=== PATIENT | male | born 1970 ===

== ENCOUNTER 2016-09-20 17:39 | Emergency (ER) | payer SELFPAY ==
--- NOTE | 2016-09-20 19:13 | DIAGNOSTIC IMAGING REPORT ---
PROCEDURE: XR HAND 3 OR 4 VIEWS - RIGHT INDICATION: Fell fall with fifth metacarpal hand pain TECHNIQUE: Four views of the right hand. COMPARISON: 01/07/2010 FINDINGS: Normal mineralization. No acute fractures. Chronic irregularity along the medial aspect of the fifth metacarpal base and involving the first metacarpal head. Normal osseous alignment. No suspicious soft-tissue calcification or radiodense foreign bodies. IMPRESSION: 1. No acute fractures. 2. Chronic irregularities along the first metacarpal head and fifth metacarpal base suggestive of prior fractures, correlate clinically.
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
--- NOTE | 2016-09-20 19:16 | ED NURSING NOTES ---
Clinical Report - Nurses [facility] [place] [address] 09/20/2016 17:39 Patient: ADRIÁN HANKINS TRIAGE Triage time 17:47. Acuity: LEVEL 4. Chief Complaint: INJURY TO RIGHT HAND. 17:47 09/20/16. 17:47 09/20/16. Alert. No acute distress. SEPSIS SCREEN: Sepsis Screen. Negative (no infection suspected/documented). ANGE COMA SCORE: Ange Coma Scale: 15- eyes open spontaneously (4); best verbal response- oriented x 4 (5); best motor response- obeys commands (6). --17:52 Nash Lopez R.N. 17:47 09/20/16. BP: 134/84. HR: 74. RR: 16. O2 saturation: 98% on room air. Temp: 97.9 F (oral). Pain level now: 11/15. --17:52 Nash Lopez R.N. Weight: 83.9 kg stated. Height/Length: 69 inches Per Patient. BMI: 27.3. --17:48 Nash Lopez R.N. Medications None. --17:49 Nash Lopez R.N. Medication/allergy information source: the patient. --17:52 Nash Lopez R.N. Allergies Penicillins. --17:49 Nash Lopez R.N. History Arrived by private vehicle. Historian: patient. Unaccompanied. Primary physician (NONE). 17:47 09/20/16. This occurred last night. Mechanism of injury: fell. 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 PAST MEDICAL HX: Tetanus status: up-to-date. Immunizations: up-to-date. SOCIAL HX: Never smoker. No alcohol use or drug use. No infectious disease exposure. ABUSE ASSESSMENT: No report of abuse. FALL RISK ASSESSMENT: Fall risk assessment completed. No fall risk identified. NUTRITIONAL RISK ASSESSMENT: The nutritional risk assessment revealed no deficiencies. FUNCTIONAL ASSESSMENT: Functional assessment: no impairments noted. LEARNING NEEDS ASSESSMENT: The learning needs assessment revealed no barriers. SKIN INTEGRITY ASSESSMENT: Skin integrity risk assessment completed. No skin integrity risk identified. --17:52 Nash Lopez R.N. PROBLEMS: Rib Fracture. Fall. Myofascial Strain. Lumbar Strain. Pneumonia. Chest Wall Pain. Hyperlipidemia. Anxiety Reaction. Hypercholesterolemia. Constipation. Rectal Bleed. Hypertension. Immunizations. --17:49 Nash Lopez R.N. ADDITIONAL SURGERIES: no known surgeries. Assessment 17:47 09/20/16. --17:52 Nash Lopez R.N. Interventions 17:47 09/20/16. 17:47 09/20/16. ID and allergy band on patient. To treatment room. --17:52 Nahs Lopez R.N. PHYSICAL ASSESSMENT 17:49 09/20/16. Ambulatory to room. GENERAL / NEURO / PSYCH: Oriented X 4. Alert. Appears in no acute distress. EXTREMITIES: Capillary refill is less than 2 seconds in the extremities. Extremity pulses are within normal limits. Extremities exhibit normal ROM. Neuro-vascular status intact to the extremity. Right hand: tenderness and swelling. SKIN: Skin is warm and dry. --17:49 Nash Lopez R.N. NURSING PROGRESS NOTES 17:50 09/20/16. The plan of care for this patient has been created. Cold pack applied. Extremity elevated. Neuro-vascular extremity check. Reassurance given. Call light placed in reach. Side rails up x 2. Bed placed in lowest position. Brakes of bed on. Patient ready for evaluation- chart flagged and notification provided. --17:50 Nash Lopez R.N. 18:06 09/20/16. ( x-ray completed). --18:06 Nash Lopez R.N. 18:25 09/20/16. Patient waiting for diagnostic study result. --18:25 Nash Lopez R.N. 19:15 09/20/2016 Hydrocodone-APAP (Hydrocodone-Acetaminophen) PO 5/325 mg Tablets 1 tab given. Allergies verified, confirmed 5 rights and sedative warning given to the patient. --19:18 Christianne Kaplan R.N. 2 inch fran bandage applied to right wrist by nurse; distal pulses intact, sensation intact and motor function within normal limits. --19:22 Christianne Kaplan R.N. DISPOSITION / DISCHARGE Condition at departure: improved and stable. No learning barriers present. Discharge instructions provided and reviewed with the patient. Reviewed medication(s) side effects, precautions, dosing and course information. Prescription(s) given to the patient. Work note given. Patient verbalized understanding. Written instructions provided in Divehi. The patient was discharged home and unaccompanied at time of discharge. He left the Emergency Department ambulatory and via private vehicle. Boiler Coverer Helper driving. --19:28 Christianne Kaplan R.N. 19:23 09/20/16. BP: 119/81 taken on the left arm, while lying. HR: 71 (regular and normal rate). RR: 18 (regular and unlabored). O2 saturation: 98% on room air. Temp: deferred. Pain level now: 06/18. --19:28 Christianne Kaplan R.N. Locked/Released at 09/20/2016 19:28 by Christianne Kaplan R.N.
--- NOTE | 2016-09-20 19:16 | ED ORDER SUMMARY ---
..... Patient: ADRIÁN HANKINS OrderSheet [facility] VisitID: [id number] [place] [address] 46y, M Registration Date/Time: 09/20/2016 ORDER SHEET Weight: 83.9 kg (stated) Allergies: Penicillins GENERAL ORDERS: Hand 3 or 4V Right Urgent (17:50 09/20/2016 Nav R.N. per protocol) (Ack 18:00 Zenia) (18:06 Nav R.N.) Mat Wrap (19:16 09/20/2016 HBivens A.R.N.P.) (19:21 CBradburn R.N.) MEDICATION ORDERS: Hydrocodone-APAP PO 5/325 mg (NOW, HIGH ALERT MEDICATION) (19:14 09/20/2016 HBivens A.R.N.P.) (Ack 19:15 John R.N.) (19:18 CBradburn R.N.) IV FLUIDS: ORDER SHEET NOTES: [Electronically signed by Christianne Kaplan R.N. (19:28 09/20/2016)] [Electronically signed by Jud Oconnor A.R.N.P. (20:47 09/20/2016)] [Electronically locked/signed by Christianne Kaplan R.N. (19:28 09/20/2016)]
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
--- NOTE | 2016-09-20 19:16 | ED ORDER SUMMARY ---
..... Patient: ADRIÁN HANKINS OrderSheet [facility] VisitID: [id number] [place] [address] 46y, M Registration Date/Time: 09/20/2016 ORDER SHEET Weight: 83.9 kg (stated) Allergies: Penicillins GENERAL ORDERS: Hand 3 or 4V Right Urgent (17:50 09/20/2016 Nav R.N. per protocol) (Ack 18:00 Zenia) (18:06 Nav R.N.) Mat Wrap (19:16 09/20/2016 HBivens A.R.N.P.) (19:21 CBradburn R.N.) MEDICATION ORDERS: Hydrocodone-APAP PO 5/325 mg (NOW, HIGH ALERT MEDICATION) (19:14 09/20/2016 HBivens A.R.N.P.) (Ack 19:15 John R.N.) (19:18 CBradburn R.N.) IV FLUIDS: ORDER SHEET NOTES: [Electronically signed by Christianne Kaplan R.N. (19:28 09/20/2016)] [Electronically signed by Jud Oconnor A.R.N.P. (20:47 09/20/2016)] [Electronically locked/signed by Christianne Kaplan R.N. (19:28 09/20/2016)]
--- NOTE | 2016-09-20 20:48 | ED DISCHARGE INSTRUCTIONS ---
Patient: ADRIÁN HANKINS General Instructions [facility] VisitID: [id number] [place] [address] 46y, M Registration Date/Time: 09/20/2016 Sprain of the metacarpophalangeal joint of the right middle finger, ring finger and little finger. Fall on same level by tripping. INSTRUCTIONS Apply ice for 20 minutes four times a day for one days until better. Elevate affected areas above chest level for one days until better. Wear elastic wrap (Mat wrap) as directed for one weeks until better. Do not work today. Warnings: GENERAL WARNINGS: Return or contact your physician immediately if your condition worsens or changes unexpectedly, if not improving as expected, or if other problems arise. Specifically return if problem worsens. Prescription Medications: Ultram 50 mg tablets: take 1-2 orally every 6 hours as needed for pain. Dispense twenty (20). No refills. Substitution is permissible. Follow-up: Follow up with your doctor in about one week as needed. Call for an appointment. Summary of care provided to patient. Understanding of the discharge instructions verbalized by patient. ADDITIONAL INFORMATION Mechanical Fall You have had a fall today. It appears that the cause is mechanical. That means that you slipped, tripped or lost your balance. If your fall had been due to fainting or a seizure, further tests would be required. Home Care: Rest today and resume your normal activities when you are feeling back to normal. If you were injured during the fall, follow the advice from your doctor regarding care of your injury. You may use acetaminophen (Tylenol) or ibuprofen (Motrin, Advil) to control pain, unless another pain medicine was prescribed. [NOTE: If you have chronic liver or kidney disease or ever had a stomach ulcer or GI bleeding, talk with your doctor before using these medicines.] Fall Prevention: Was there anything that caused your fall that can be fixed, removed, or replaced? Make your home safe by keeping walkways clear of objects you may trip over. Use non-slip pads under rugs. Do not walk in poorly lit areas. Do not stand on chairs or wobbly ladders. Use caution when reaching overhead or looking upward. This position can cause a loss of balance. Be sure your shoes fit properly, have non-slip bottoms and are in good condition. Be cautious when going up and down curbs, and walking on uneven sidewalks. If your balance is poor, consider using a cane or walker. Stay as active as you can. Balance, flexibility, strength, and endurance all come from exercise. They all play a role in preventing falls. Follow Up with your doctor or as advised by our staff. Get Prompt Medical Attention if any of the following occur: Repeated mechanical falls, or unexplained falls Dizziness, fainting or seizure Severe headache Chest pain or shortness of breath Palpitations (very rapid or very slow or irregular heartbeat) Blood in vomit, stools (black or red color) Weakness of an arm or leg or one side of the face Difficulty with speech or vision Sprain, Hand A sprain is a stretching or tearing of the ligaments that hold a joint together. There are no broken bones. Sprains take from three to six weeks to heal. A sprained hand may be treated with a splint or elastic wrap for support. Home care The following guidelines will help you care for your injury at home: 1) Keep your ARM elevated to reduce pain and swelling. This is most important during the first 48 hours. 2) Apply an ice pack (ice cubes in a plastic bag, wrapped in a towel) over the injured area for 20 minutes every 12 hours the first day. You should continue with ice packs 34 times a day for the next two days. Continue the use of ice packs for relief of pain and swelling as needed. 3) You may use acetaminophen or ibuprofen to control pain, unless another pain medicine was prescribed. If you have chronic liver or kidney disease or ever had a stomach ulcer or GI bleeding, talk with your doctor before using these medicines. 4) If you were given a splint or elastic wrap, wear it until your pain improves. Follow-up care Follow up with your doctor as directed. Any X-rays you had today dont show any broken bones, breaks, or fractures. Sometimes fractures dont show up on the first X-ray. Bruises and sprains can sometimes hurt as much as a fracture. These injuries can take time to heal completely. If your symptoms dont improve or they get worse, talk with your doctor. You may need a repeat X-ray. When to seek medical care Get prompt medical attention if any of the following occur: Pain or swelling increases Fingers or hand becomes cold, blue, numb, or tingly Mat Wrap An "Mat Bandage" refers to any elastic bandage wrap (2-6" wide). This is used to apply support and compression to an arm or leg. It will help prevent or reduce swelling also. When applying the bandage, it should not be stretched too tightly. A tight Mat Wrap will reduce circulation and cause tingling or numbness in the hand or foot. It may increase the pain under the bandage. If you get these symptoms, remove the wrap and rest the limb. Symptoms should go away within 1-2 hours. Once symptoms go away, reapply the bandage with less stretch. If symptoms do not go away after 1-2 hours with the bandage off, call your doctor or return to this facility promptly. Tramadol Hydrochloride Oral tablet What is this medicine? TRAMADOL (TRA ma dole) is a pain reliever. It is used to treat moderate to severe pain in adults. How should I use this medicine? Take this medicine by mouth with a full glass of water. Follow the directions on the prescription label. If the medicine upsets your stomach, take it with food or milk. Do not take more medicine than you are told to take. Talk to your shafting cleaner regarding the use of this medicine in children. Special care may be needed. What side effects may I notice from receiving this medicine? Side effects that you should report to your doctor or health healthcare consulting manager as soon as possible: allergic reactions like skin rash, itching or hives, swelling of the face, lips, or tongue breathing difficulties, wheezing confusion itching light headedness or fainting spells redness, blistering, peeling or loosening of the skin, including inside the mouth seizures Side effects that usually do not require medical attention (report to your doctor or health healthcare consulting manager if they continue or are bothersome): constipation dizziness drowsiness headache nausea, vomiting What may interact with this medicine? Do not take this medicine with any of the following medications: MAOIs like Carbex, Eldepryl, Marplan, Nardil, and Parnate This medicine may also interact with the following medications: alcohol or medicines that contain alcohol antihistamines benzodiazepines bupropion carbamazepine or oxcarbazepine clozapine cyclobenzaprine digoxin furazolidone linezolid medicines for depression, anxiety, or psychotic disturbances medicines for migraine headache like almotriptan, eletriptan, frovatriptan, naratriptan, rizatriptan, sumatriptan, zolmitriptan medicines for pain like pentazocine, buprenorphine, butorphanol, meperidine, nalbuphine, and propoxyphene medicines for sleep muscle relaxants naltrexone phenobarbital phenothiazines like perphenazine, thioridazine, chlorpromazine, mesoridazine, fluphenazine, prochlorperazine, promazine, and trifluoperazine procarbazine warfarin What if I miss a dose? If you miss a dose, take it as soon as you can. If it is almost time for your next dose, take only that dose. Do not take double or extra doses. Where should I keep my medicine? Keep out of the reach of children. Store at room temperature between 15 and 30 degrees C (59 and 86 degrees F). Keep container tightly closed. Throw away any unused medicine after the expiration date. What should I tell my health care provider before I take this medicine? They need to know if you have any of these conditions: brain tumor depression drug abuse or addiction head injury if you frequently drink alcohol containing drinks kidney disease or trouble passing urine liver disease lung disease, asthma, or breathing problems seizures or epilepsy suicidal thoughts, plans, or attempt; a previous suicide attempt by you or a family member an unusual or allergic reaction to tramadol, codeine, other medicines, foods, dyes, or preservatives or trying to get breast-feeding What should I watch for while using this medicine? Tell your doctor or health healthcare consulting manager if your pain does not go away, if it gets worse, or if you have new or a different type of pain. You may develop tolerance to the medicine. Tolerance means that you will need a higher dose of the medicine for pain relief. Tolerance is normal and is expected if you take this medicine for a long time. Do not suddenly stop taking your medicine because you may develop a severe reaction. Your body becomes used to the medicine. This does NOT mean you are addicted. Addiction is a behavior related to getting and using a drug for a non-medical reason. If you have pain, you have a medical reason to take pain medicine. Your doctor will tell you how much medicine to take. If your doctor wants you to stop the medicine, the dose will be slowly lowered over time to avoid any side effects. You may get drowsy or dizzy. Do not drive, use machinery, or do anything that needs mental alertness until you know how this medicine affects you. Do not stand or sit up quickly, especially if you are an older patient. This reduces the risk of dizzy or fainting spells. Alcohol can increase or decrease the effects of this medicine. Avoid alcoholic drinks. You may have constipation. Try to have a bowel movement at least every 2 to 3 days. If you do not have a bowel movement for 3 days, call your doctor or health healthcare consulting manager. Your mouth may get dry. Chewing sugarless gum or sucking hard candy, and drinking plenty of water may help. Contact your doctor if the problem does not go away or is severe. You have been given the following additional information: Fall, Mechanical Sprain Hand Mat Wrap Tramadol Hydrochloride Oral tablet Do not work today. (Electronically signed by Jud Oconnor A.R.N.P. 09/20/2016 20:47)
--- NOTE | 2016-09-20 20:48 | ED MED RECONCILIATION SUMMARY ---
Patient: ADRIÁN HANKINS Medication Reconciliation Report [facility] VisitID: [id number] [address] [place] [address] 46y, M Registration Date/Time: 09/20/2016 Weight: 83.9 kg Height/Length: 69 in. BMI: 27.3 ALLERGIES: Penicillins The patient's Home Medications are listed below: NONE. The source(s) of the original Home Medication information: patient The following Medications were given to the patient in the Emergency Department: Hydrocodone-APAP [PO] PO 1 tab, administered: 09/20/2016 7:15:00 PM The following Medications were prescribed to the patient: Ultram 50 mg tablets: take 1-2 orally every 6 hours as needed for pain. Dispense twenty (20). No refills. Substitution is permissible. -- Jud Oconnor A.R.N.P.
--- NOTE | 2016-09-20 20:48 | ED MAR SUMMARY ---
..... Medication Administration Record [facility] [address] [place] [address] Patient: ADRIÁN HANKINS Visit ID: [id number] 46y, M Weight: 83.9 kg Height/Length: 69 in BMI: 27.3 ALLERGIES: Penicillins Given 19:15 09/20/2016 Christianne Kaplan R.N. Medication Administered: HYDROCODONE-APAP [PO] (HYDROCODONE-ACETAMINOPHEN), Dose: 1 tab 5/325 mg Tablets PO. Medication Ordered: Hydrocodone-APAP PO 5/325 mg (NOW, HIGH ALERT MEDICATION).
--- NOTE | 2016-09-20 20:48 | ED MAR SUMMARY ---
..... Medication Administration Record [facility] [address] [place] [address] Patient: ADRIÁN HANKINS Visit ID: [id number] 46y, M Weight: 83.9 kg Height/Length: 69 in BMI: 27.3 ALLERGIES: Penicillins Given 19:15 09/20/2016 Christianne Kaplan R.N. Medication Administered: HYDROCODONE-APAP [PO] (HYDROCODONE-ACETAMINOPHEN), Dose: 1 tab 5/325 mg Tablets PO. Medication Ordered: Hydrocodone-APAP PO 5/325 mg (NOW, HIGH ALERT MEDICATION).
--- NOTE | 2016-09-20 20:48 | ED MED RECONCILIATION SUMMARY ---
Patient: ADRIÁN HANKINS Medication Reconciliation Report [facility] VisitID: [id number] [address] [place] [address] 46y, M Registration Date/Time: 09/20/2016 Weight: 83.9 kg Height/Length: 69 in. BMI: 27.3 ALLERGIES: Penicillins The patient's Home Medications are listed below: NONE. The source(s) of the original Home Medication information: patient The following Medications were given to the patient in the Emergency Department: Hydrocodone-APAP [PO] PO 1 tab, administered: 09/20/2016 7:15:00 PM The following Medications were prescribed to the patient: Ultram 50 mg tablets: take 1-2 orally every 6 hours as needed for pain. Dispense twenty (20). No refills. Substitution is permissible. -- Jud Oconnor A.R.N.P.
== END 2016-09-20 19:24 | disposition home or self-care (01) ==
LOC: ED SRH 17:39
DX: S63.632A Sprain of interphalangeal joint of right middle finger, initial encounter (principal); Z88.0 Allergy status to penicillin; S63.634A Sprain of interphalangeal joint of right ring finger, initial encounter; S63.636A Sprain of interphalangeal joint of right little finger, initial encounter; W01.0XXA Fall on same level from slipping, tripping and stumbling without subsequent striking against object, initial encounter; Y93.9 Activity, unspecified; Y92.009 Unspecified place in unspecified non-institutional (private) residence as the place of occurrence of the external cause; Y99.9 Unspecified external cause status; I10 Essential (primary) hypertension; E78.5 Hyperlipidemia, unspecified